=== PATIENT | male | born 1970 | race Caucasian/White ===

== ENCOUNTER 2016-06-27 05:47 | Day surgery (SDC) | payer OTHER ==
[~2016-06-27] VITALS: Ht 180.3 cm; Wt 106.3 kg
[2016-06-27] VITALS (13 sets, daily range): BP systolic 128–161; BP diastolic 83–107; PULSE 71–94; RESP 10–17; O2SAT 92–98
[~2016-06-27 05:47] MED LIST: CYCL10TA9 PO; OXYC1TAB24 PO
[2016-06-27] MEDS ORDERED: Propofol 10,000 mCg/mL 20 mL Inj ONE (05:48)
[2016-06-27] MEDS ORDERED: Ondansetron 2 mg/mL 2 mL Inj ONE (05:48)
[2016-06-27] MEDS ORDERED: fentaNYL-PF 50 mCg/mL 2 mL Inj ONE (05:48)
[2016-06-27] MEDS ORDERED: CeFAZolin Inj 2 GM in IV Premix 1 EACH IV ONE (06:00)
[2016-06-27] MEDS: Lactated Ringer's 1,000 ML IV SCH ×2 (06:36→07:19)
--- NOTE | 2016-06-27 06:55 | PCM.HPANE ---
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 Admitting Provider: Attending Provider:Tyree Beltran DO Primary Care Physician:Randy Vance PA-C Other Provider:Valentin Hall Anesthesia Reason for Visit Left Hand Foreign Body Ht/WT & BMI Height (Feet): 5 Height (Inches): 11.00 Weight (Kilograms): 106.300 Body Mass Index 32.00 Allergies Coded Allergies: No Known Allergies (Unverified , 06/21/16) Past Anesthesia History Anesthesia History: Denies:: Anesthesia Reactions Diabetes History Hx Diabetes?: No Medications Home Meds Incl Beta Erik: No Reported Medications oxyCODONE-Acetaminophen 5-325 mg 1 Each Tablet1 Tab PO Q8H PRN For Pain Ref 0 06/21/16 Cyclobenzaprine 10 Mg [id number] Mg PO TID PRN Spasm 06/21/16 History History of ENT Problems?: No HEENT History: Denies:: Abnormal Airway Cataracts Difficult Intubation Dysphagia Glaucoma Hearing Problem Sinus Problem TMJ Denture Type: None Teeth Condition: Within Normal Limits Hx of Heart Problems?: No Cardiovascular History: Denies:: AICD Abdominal Aortic Aneurism Atrial Fibrillation Cardiac Surgery Chest Pain Congestive Heart Failure Coronary Artery Disease Edema Heart Murmur Hypertension Irregular Heartbeat Pacemaker Peripheral Vascular Rheumatic Fever Thrombophlebitis Valvular Heart Disease Hx of Respiratory Problem?: No Respiratory History: Denies:: Asthma COPD Chest Surgery Cough Dyspnea Emphysema Hemoptysis Oxygen Administration Pneumonia Pulmonary Embolism Tuberculosis Use of C-PAP Machine Use of Inhalers / NEBS Hx Neurologic Problems?: No Neurological History: Denies:: Alzheimer's Disease CVA Dementia Dizziness Headaches Multiple Sclerosis Parkinson's Disease Peripheral Neuropathy Seizures TIA Hx of GI Problems?: No Gastrointestinal History: Denies:: Cirrhosis Diverticulitis Gall Bladder Disease Gastroesphageal Reflux Gastrointestinal Bleeding Heartburn Hepatitis Hiatal Hernia Liver Disease Rectal Bleeding Hx of Problems?: No Genitourinary History: Denies:: HX of Hemodialysis Kidney Stones Urinary Tract Infection Skin History: Denies:: History Skin Disorders? Pressure Ulcers Hx Musculoskeletal Problems?: Yes Musculoskeletal History: Positive for:: Back Injury (hx of laminectomy) Musculoskeletal Trauma (retained foreign body left hand (wood) current admission problem) Hx of Psycho/Social Problems?: No Psycho Social History: Denies:: Anxiety Bipolar Disorder Hx Depression Suicide Attempt Hx Surgeries?: Yes (lami) Hx Any Other Health Problems?: Yes Other History: Denies:: Cancer Thyroid Disease Hx Diabetes: No Have You Smoked inLast 12 mo: Yes Stop/Bang P-Blood Pressure: treated: No B- Body Mass Index > 35 kg/m2: No A- Age over 50: No N- Neck Large Circumference: No G- Gender Male: Yes Risk Assessment Category Category 1A: Patient has history of documented sleep apnea, and HAS NOT received any narcotic, sedative or anesthesia administration during this stay. Category 1B: Patient has history of documented sleep apnea, and HAS received any narcotic , sedative or anesthesia administration during this stay Category 2: Patient has SUSPECTED Obstructive Sleep Apnea, and HAS received any narcotic , sedative or anesthesia administration during this stay. Category 3: Patient has SUSPECTED Obstructive Sleep Apnea and HAS NOT received narcotic, sedative or anesthesia administration during this stay. Category 4: Outpatient in Procedural Areas with known sleep apnea or who screen positive for High Risk via the STOP/BANG questionnaire. Exam Exam Vital Signs Vital Signs Date Time Temp Pulse Resp B/P Pulse Ox O2 Delivery O2 Flow Rate FiO2 06/27/16 06:13 36.1 74 16 146/86 95 Room Air General Appearance: Alert HEENT/AIRWAY: MP 2 Lungs: Clear to Auscultation Heart: Exam Unremarkable Meds/Labs/Diagnostics Admission Meds Current Medications Lactated Ringer's (Lr) 1,000 ml @ 120 mls/hr Q8H20M IV Last administered on t 06:36; Start 06/27/16 at 05:00; Stop 06/27/16 at 13:19 Plan Impression Patient chart reviewed, patient interviewed and anesthestic plan with risks, benefits, and alternatives discussed, and informed consent obtained. NPO per Anesth. Guidelines: Yes ASA Physical Status: ASA2 Mod Systemic Disease Anesthetic Support Modalities: Hemodynamic Monitoring Anesthetic Plan: GA Bene/Risks/Altern/Consents: Yes HP Complete Prior to Induction: Yes Live Aldrich MD Jun 27, 2016 06:55
[2016-06-27] MEDS ORDERED: HYDROcodone-APAP 5-325 mg Tablet PO PRN (07:05)
[2016-06-27] MEDS ORDERED: Lactated Ringer's 1,000 ML IV SCH (07:12)
[2016-06-27] MEDS ORDERED: Lactated Ringer's 500 ML IV PRN (07:12)
[2016-06-27] MEDS ORDERED: HYDROmorphone 1 mg/mL Inj IVPUSH PRN (07:15)
[2016-06-27] MEDS ORDERED: Dexamethasone 4 mg/mL Inj IVPUSH PRN (07:15)
[2016-06-27] MEDS ORDERED: Phenylephrine 10,000 mCg/mL Inj IVPUSH PRN (07:15)
[2016-06-27] MEDS ORDERED: MetoCLOpramide 5 mg/mL 2 mL Inj IVPUSH PRN (07:15)
[2016-06-27] MEDS ORDERED: EPHEDrine Sulfate 50 mg/mL Inj IVPUSH PRN (07:15)
[2016-06-27] MEDS ORDERED: Ondansetron 2 mg/mL 2 mL Inj IVPUSH PRN (07:15)
[2016-06-27] MEDS ORDERED: Lidocaine 1%-Epi 1:100,000 20 mL Inj INJ ONE (07:33)
--- NOTE | 2016-06-27 08:15 | PCM.ANEP1 ---
Post Anesthesia Phase 1 PACU Phase 1 Assessment Vital Signs Vital Signs Date Time Temp Pulse Resp B/P Pulse Ox O2 Delivery O2 Flow Rate FiO2 06/27/16 08:10 84 10 156/87 96 Room Air 06/27/16 08:05 94 15 155/91 94 Room Air 06/27/16 08:00 93 15 161/102 98 Simple Mask 8 06/27/16 07:55 36.5 91 17 149/107 98 Simple Mask 8 06/27/16 06:13 36.1 74 16 146/86 95 Room Air Anesthetic Administered: GA Level of Alertness: Awake, talking GARCIA's with Equal Strength: Yes Pain: No Nausea or Vomiting: No Cardiovascular Function and Hy: Yes Airway Device: Oralpharangeal Airway Oxygen Delivery: Simple Mask Lungs: Clear to Auscultation Dermatome Level: Full Sensation Complications: No Follow up Care: No Patient Instructions Provided: Yes Live Aldrich MD Jun 27, 2016 08:15
[2016-06-27] MEDS: fentaNYL-PF 50 mCg/mL 2 mL Inj IVPUSH PRN ×2 (08:23→08:30)
--- NOTE | 2016-06-27 09:27 | OP ---
[address] [address] OPERATIVE REPORT PATIENT: MARSHALL HARRIS : 1970 MR#: [id number] ADMIT: 06/27/2016 JOB ID: [id number] DATE OF SURGERY: 06/27/2016 PREOPERATIVE DIAGNOSIS(ES): Left hand foreign body. POSTOPERATIVE DIAGNOSIS(ES): Left hand foreign body. PROCEDURE: Excision of left hand subcutaneous foreign body. SURGEON: Tyree Beltran D.O. ANESTHESIA: General. HISTORY: The patient is a pleasant 45-year-old male who sustained a wound to his left hand for several months. He had a large splinter stuck within this hand and was only able to remove a portion of the splinter. He continued to have pain with grasping and touching activities. An ultrasound was obtained demonstrating a 1.5-2 cm foreign body just volar to the flexor tendons. I discussed with the patient the risks, benefits, alternatives and indications to proceed with excision of left hand foreign body. He understood the risks include, but not limited to, neurovascular injury, tendon injury, infection, stiffness, persistent pain, all of which may require further intervention. The patient had all questions answered. Consent was signed and placed in the chart. PROCEDURE IN DETAIL: The patient was brought to the operative suite and placed supine on the operating table. Surgical time-out performed. Everyone the room was in agreement. After appropriate anesthesia was obtained, a left upper arm tourniquet was applied, and the left upper extremity was prepped and draped in a sterile fashion. Left upper extremity was then exsanguinated and tourniquet inflated to 250 mmHg. A Barrett type incision was made directly overlying the 5th metacarpophalangeal joint volarly. Dissection was carried down to the soft tissues. A moderate amount of purulence emanated from the wound. This area was cultured with aerobic and anaerobic cultures as well as Gram stain. The foreign body was identified just volar to the 4th web space. This was removed in its entirety consisting of an approximate 1.5 cm x 3 mm splinter. Copious irrigation was performed followed by closure of the skin with 4-0 nylon in an interrupted fashion. The patient was then placed in a bulky soft dressing. ESTIMATED BLOOD LOSS: Less than 1 cc. COMPLICATIONS: None. DISPOSITION: The patient tolerated the procedure well. Anesthesia was reversed. The patient was transferred back to recovery. SPECIMENS: Aerobic and anaerobic cultures as well as Gram stain from the left hand as well as a foreign body consisting of a splinter that was disposed of. POSTOPERATIVE PLAN: The patient will follow up in the office in two weeks. We will remove the patient's sutures at that time and have him start working on range of motion and scar mobilization.
== END 2016-06-27 23:59 | disposition home or self-care (01) ==
LOC: SAS 05:47
PROVIDERS: ATTEND Orthopaedic Surgery
DX: M79.5 Residual foreign body in soft tissue (principal)
CPT/HCPCS: 10121; 87070; 87075; 87077; 87186; 87205; J0690; J1170; J2175; J2405; J3010; J7120